=== PATIENT | female | born 1945 | race Caucasian/White ===

== ENCOUNTER 2017-02-07 11:04 | Day surgery (SDC) | payer MEDICARE ==
[~2017-02-07 11:04] MED LIST: ACETAMINOPHEN 1,000 MG/100 ML VIAL IV SCH; FAMOTIDINE IN SALINE, ISO-OSM 20 MG/50 ML PIGGYBACK IV SCH; LACTATED RINGERS 1,000 ML IV SCH; LIDOCAINE HCL 1% 20 ML VIAL SUBCUT PRN; MIDAZOLAM HCL 2 MG/2 ML SYR IV PRN
[2017-02-07] MEDS ORDERED: NORFLURANE/HFC 245FA 1 APPLIC CAN TOPICAL ONE (11:57)
[2017-02-07] MEDS ORDERED: BUPIVACAINE HCL/PF 0.5% 30 ML VIAL ONE (11:58)
[2017-02-07] MEDS ORDERED: FENTANYL 100 MCG/2 ML VIAL IV PRN (12:03)
[2017-02-07] MEDS ORDERED: NORMAL SALINE MINI-BAG+ 100 ML IV ONE (12:04)
[2017-02-07] MEDS ORDERED: ceFAZolin 1 GM/10 ML VIAL ONE (12:04)
[2017-02-07] MEDS ORDERED: LIDOCAINE HCL/PF 0.5% 50 ML VIAL ONE (12:14)
[2017-02-07] MEDS ORDERED: ceFAZolin 1 GM in NORMAL SALINE MINI-BAG+ 100 ML IV PRN (12:57)
[2017-02-07] MEDS ORDERED: LACTATED RINGERS 1,000 ML IV SCH ×2 (12:57→13:00)
--- NOTE | 2017-02-07 12:57 | OPERATIVE NOTE: Orthopedic ---
DATE OF SURGERY: 02/07/17 SURGEON: Adalberto ANESTHESIA: [place] block PREOPERATIVE DIAGNOSIS: right trigger thumb POSTOPERATIVE DIAGNOSIS: same PROCEDURE PERFORMED: A1 petar release right thumb IMPLANTS: NA INDICATION FOR PROCEDURE: The patient is a 71-year-old female who has a history of persistent triggering and pain in her right thumb that has been refractory to digital sheath injection. Due to her ongoing symptoms she was taken to the operating room for an A1 petar release. SUMMARY: After obtaining informed written consent, the patient was taken to the operating room where she was placed in the supine position under Adalberto block anesthesia. After adequate anesthesia was achieved, the right hand and distal forearm were prepped and draped in usual sterile fashion, and a transverse incision was performed just proximal to the thumb MCP flexion crease. The underlying soft tissue was sharply but gently dissected, taking care to protect the radial digital nerve. The digital sheath was identified, and the A1 petar was released using tenotomy scissors. The tendon was inspected, and while there was some thickening there was no other gross pathology. The tendon was then noted to move freely. The wound was irrigated with copious sterile saline , and hemostasis was achieved using electrocautery. The skin was then closed using 4-0 nylon in an interrupted horizontal mattress fashion, and a lightly compressive sterile dressing was applied. The patient tolerated the procedure well and was taken to the recovery room in stable condition. ESTIMATED BLOOD LOSS: minimal FLUIDS: 500 mL TOURNIQUET TIME: 20 minutes
[2017-02-07 13:12] VITALS: RESP 16; TEMP 97.5
[2017-02-07 13:15] VITALS: BP 163/105; PULSE 76; O2SAT 90
--- NOTE | 2017-02-19 18:46 | PREOPERATIVE H&P ---
History of Present Illness (Sravan Glover MD; 02/01/2017 10:24 AM) The patient is a 71 year old female. Note:: The patient is here for an administratively directed preoperative visit as she is scheduled next week for A1 petar release of her right thumb. 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 She is followed by neurology, Dr. Karlene Jones at the [facility]. Screening examination for venereal disease (V74.5) Tendonitis of foot (727.06) PVC (premature ventricular contraction) (I49.3) Encounter for dietary counseling and surveillance (Z71.3) BMI 29.0-29.9,adult (Z68.29) Hyperlipidemia, acquired (E78.5) 04/12: HDL 57; TG 70; LDL 175; CRR 4.3. She did not tolerate simvastatin. 10/14: ASCVD Risk 10.2% Anal irritation (K62.89) Dry eye syndrome, bilateral (H04.123) Dysfunctional tear syndrome. Cataract, nuclear sclerotic, both eyes (H25.13) Early cataracts OU. Screening for depression (Z13.89) Herpes zoster ophthalmicus of right eye (B02.30) in 1991 with no significant sequelae. Routine gynecological examination (V72.31) Screening mammogram (V76.12) Osteoporosis (733.00) (M81.0) 03/13: Metabolic workup for secondary causes of osteoporosis normal. She did not tolerate Fosamax due to nausea and vomiting. 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 Sulfa Drugs (Bactrim, Pediazole, Septra...)10/18/2016 [id number]/2016 Hives Vaccine Prevnar: SOB; difficulty breathing. Family History (Sravan Glover MD; 02/01/2017 10:26 AM) Mother 01/10: 95 Susu [address]. Osteoporosis; HTN Father 79: smoker; metastatic lung CA; colon CA. Family Members In General Brother. Tremaine, back problems No Significant Family Ocular History First Degree Relatives Brother. Ollie; back problems Social History (Sravan Glover MD; 02/01/2017 10:26 AM) Alcohol use Does not drink alcohol. None Tobacco use Never smoker. None No drug use Vehicle Driving Yes. Marital status , Re-. Had been to John since 1966. She discovered that he has been practicing homosexuality. to Obdulio [place] . 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 Verapamil HCl ER (240MG Capsule ER 24HR, 1 Oral daily, Taken starting 2016) Active. (Migraine prophylaxis.) ValACYclovir HCl (1GM Tablet, 1 (one) Oral daily, Taken starting 10/18/2016) Active. Co Q10 (200MG Capsule, 1 Oral daily, Taken starting 03/21/2012) Active. LORazepam (0.5MG Tablet, 1 sublingual Oral four times daily, as needed, Taken starting 04/30/2015) Active. (Dizziness) Magnesium Oxide (400MG Capsule, 1 Oral daily) Active. Vitamin D3 (1000UNIT Capsule, 1 Oral daily) Active. Vitamin K2 (100MCG Capsule, 1 Oral daily) Active. PriLOSEC OTC (20MG Tablet DR, 1 Oral daily) Active. Fish Oil (500MG Capsule, 1 Oral daily) Active. Niacin CR (500MG Capsule ER, 1 Oral daily) Active. Vitamin C (1000MG Tablet, 1 Oral daily) Active. Aspirin EC (81MG Tablet DR, 1 Oral daily) Active. Multivitamins (1 Oral daily) Active. Medications Reconciled Past Surgical History (Sravan Glover MD; 02/01/2017 10:26 AM) Calculus of ureter (592.1)1989 left ureter Postmenopausal bleeding (627.1) (N95.0)2003 Hysteroscopy D&C "Endometrial Polyp " Health Maintenance History (Sravan Glover MD; 02/01/2017 10:26 AM) Bone Density Study12/09/2011 Abnormal. 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 Jones & [place] follows; +Photophobia, usually right; +nausea/vomiting; Bestibular Sx Encounter for routine adult medical exam with abnormal findings (Z00.01) Vitals (Geraldine Manewrtyler M.A.; 02/01/2017 9:11 AM) 02/01/2017 9:08 AM Weight: 190 lb Height: 67.25in Body Surface Area: 1.98 m Body Mass Index: 29.54 kg/m Temp.: 97.3F(Temporal) Pulse: 84 (Regular) Resp.: 16 (Unlabored) BP: 124/88 (Sitting, Left Arm, Standard) al Exam (Sravan Glover MD; 02/01/2017 10:25 AM) Musculoskeletal Physical examination today reveals that there is no gross triggering at this time, although she does have palpable thickening of the flexor tendon in the distal palm just proximal to the thumb MCP flexion crease. She is also tender to palpation in that location. Assessment & Plan (Sravan Glover MD; 02/01/2017 10:26 AM) Trigger thumb, acquired (M65.30) Assessment: Right trigger thumb. Plan: As noted above, the patient is scheduled for A1 petar release next week. Today we discussed the operation, risks, and indications. Risks of the procedure include but are not limited to: Blood vessel or nerve injury, infection, persistent pain or stiffness in the thumb, or recurrent triggering. The patient has acknowledged the risks and desires to proceed as planned. Signed by Sravan Glover MD (02/01/2017 10:27 AM) [facility]
== END 2017-02-07 13:25 | disposition home or self-care (01) ==
LOC: SDS 11:04
PROVIDERS: ATTEND Orthopaedic Surgery
DX: M65.311 Trigger thumb, right thumb (principal); E78.5 Hyperlipidemia, unspecified; K21.9 Gastro-esophageal reflux disease without esophagitis; I49.9 Cardiac arrhythmia, unspecified; M81.0 Age-related osteoporosis without current pathological fracture; Z79.899 Other long term (current) drug therapy
CPT/HCPCS: J0690; J2001